=== PATIENT | male | born 1995 | race Caucasian/White ===

== ENCOUNTER 2020-07-08 11:05 | Emergency (ER) | payer OTHER ==
[~2020-07-08] VITALS: Ht 182.9 cm; Wt 111.1 kg
[2020-07-08 11:12] VITALS: BP_SYST 118
== END 2020-07-08 11:42 | disposition home or self-care (01) ==
LOC: SED 11:05
DX: M54.5 Low back pain (principal)
CPT/HCPCS: 99283

== ENCOUNTER 2020-12-02 12:04 | Emergency (ER) | payer OTHER ==
[~2020-12-02] VITALS: Ht 182.9 cm; Wt 122.5 kg
[2020-12-02] MEDS ORDERED: LIDOCAINE 1% 10 MG/ML, 20 ML MDV INJ ONE (12:15)
[2020-12-02 12:16] VITALS: BP_SYST 140
[2020-12-02] MEDS ORDERED: BACITRACIN 1 GM OINT TP ONE (12:49)
[2020-12-02] MEDS ORDERED: BACI28.33 TP (12:49)
[2020-12-02] MEDS ORDERED: IBUP-1971 PO (12:49)
[2020-12-02] MEDS ORDERED: IBUPROFEN 800 MG TABLET PO ONE (13:00)
[2020-12-02] MEDS ORDERED: NEOMY SULF/BACITRAC ZN/POLY 28 GM OINT..GM. TP ONE (13:00)
[2020-12-02 13:04] VITALS: BP_SYST 140
== END 2020-12-02 13:04 | disposition home or self-care (01) ==
LOC: SED 12:04
DX: S61.011A Laceration without foreign body of right thumb without damage to nail, initial encounter (principal); W26.8XXA Contact with other sharp object(s), not elsewhere classified, initial encounter; Y93.89 Activity, other specified; Y92.89 Other specified places as the place of occurrence of the external cause; Y99.8 Other external cause status
CPT/HCPCS: 12001; 99283; J2001